=== PATIENT | female | born 1965 | race Asian ===

== ENCOUNTER 2023-06-20 14:24 | Emergency (ER) | payer MEDICAID ==
[~2023-06-20] VITALS: Ht 162.6 cm; Wt 70.0 kg
[2023-06-20 15:27] VITALS: BP 139/59; PULSE 70; RESP 18; TEMP 98.2; O2SAT 97
[2023-06-20] MEDS: HYDROcodone-ACET 5/325MG TAB PO ONE (15:57)
[2023-06-20] MEDS ORDERED: IBUP-1456 PO (16:13)
== END 2023-06-20 16:21 | disposition home or self-care (01) ==
LOC: ER 14:24
DX: S80.01XA Contusion of right knee, initial encounter (principal); S80.02XA Contusion of left knee, initial encounter; S00.33XA Contusion of nose, initial encounter; W01.0XXA Fall on same level from slipping, tripping and stumbling without subsequent striking against object, initial encounter; Y93.89 Activity, other specified; Y92.89 Other specified places as the place of occurrence of the external cause; Y99.8 Other external cause status
CPT/HCPCS: 70160; 73562